=== PATIENT | female | born 1960 | race Caucasian/White ===

== ENCOUNTER 2017-01-13 20:30 | Observation (INO) | payer BC ==
[2017-01-13 21:16] LABS: Basophils # (A) 0.1 k/uL (0-0.2); Basophils % (A) 1 %; CH 31.4; CHCM 34.9; Eosinophils # (A) 0.3 k/uL (0-0.7); Eosinophils % (A) 5 %; HCT 40.9 % (34.0-46.0); HDW 2.73; HGB 13.9 gm/dL (11.4-16.0); Luc # (Auto) 0.21; Luc % (Auto) 3; Lymphocytes # (A) 1.9 k/uL (1.0-4.8); Lymphocytes % (A) 27 %; MCH 30.6 pg (25.0-35.0); MCHC 33.9 g/dL (31.0-37.0); MCV 90.3 fL (80.0-100.0); Mean Platelet Volume 7.3; Monocytes # (A) 0.5 k/uL (0-1.0); Monocytes % (A) 7 %; Neutrophils # (A) 4.2 k/uL (1.3-7.7); Neutrophils % (A) 58 %; RBC 4.53 m/uL (3.80-5.40); RDW 13.1 % (11.5-15.5); WBC 7.2 k/uL (3.8-10.6); WBC (Perox) 7.22
[2017-01-13 21:24] LABS: Prothrombin Time 10.1 sec (9.0-12.0)
[2017-01-13 21:29] LABS: ALT 39 U/L (9-52); AST 29 U/L (14-36); Alkaline Phosphatase 95 U/L (38-126); Anion Gap 10 mmol/L; Blood Urea Nitrogen 21 mg/dL (7-17); Calcium 9.4 mg/dL (8.4-10.2); Carbon Dioxide 27 mmol/L (22-30); Chloride 102 mmol/L (98-107); Glucose 98 mg/dL (74-99); Magnesium 1.8 mg/dL (1.6-2.3); Non-African American GFR(MDRD) >60 (>60 ml/min/1.73 sqM); Potassium 4.5 mmol/L (3.5-5.1); Sodium 139 mmol/L (137-145); Total Bilirubin 0.5 mg/dL (0.2-1.3); Total Protein 7.8 g/dL (6.3-8.2)
[2017-01-13 21:40] LABS: Creatine Kinase 348 U/L (30-135)
--- NOTE | 2017-01-13 21:42 | XR ---
EXAMINATION TYPE: XR chest 2V DATE OF EXAM: 01/13/2017 9:24 PM COMPARISON: NONE HISTORY: Chest pain TECHNIQUE: Frontal and lateral views of the chest are obtained. FINDINGS: There is coarse interstitial density throughout the lungs. There is suboptimal inspiration . Heart is probably enlarged. There are chest leads. There are no hilar masses. IMPRESSION: There is pulmonary interstitial edema that could relate to acute heart failure.
[2017-01-13 21:54] LABS: Troponin I <0.012 ng/mL (0.000-0.034)
--- NOTE | 2017-01-13 22:01 | ED ---
Chest Pain HPI - General Chief Complaint: Chest Pain Stated Complaint: Chest Pain Time Seen by Provider: 01/13/17 21:00 Source: patient Mode of arrival: wheelchair Limitations: no limitations - History of Present Illness Initial Comments: Been feeling unwell for the last 3 days, woke up to 30 in the morning last night complaining with the left shoulder pain him a pain also traveled to his upper back she was quite diaphoretic she felt there was indigestion and complaining about the pain in the epigastric area pain is all the half-normal later and then now has upper back pain and known today she does have a history of hypertension denies any tobacco denies any alcohol he denies the pain gets worse with deep breaths family history mom mom has no he had a history of heart disease dad had no history of heart disease both parents had cancer, degree of system is unremarkable otherwise - Related Data Home Medications Medication Instructions Recorded Confirmed Ranitidine HCl [Zantac] 150 mg PO TID-W/MEALS 08/20/14 01/13/17 cloNIDine HCL [Catapres] 0.1 mg PO DAILY 08/20/14 01/13/17 Citalopram Hydrobromide [CeleXA] 40 mg PO DAILY 01/13/17 01/13/17 Diclofenac Potassium [Cataflam] 50 mg PO DAILY 01/13/17 01/13/17 Glucosamine HCl/Chondr Deluna A Na 2 tab PO QAM 01/13/17 01/13/17 [Osteo Bi-Flex Caplet] Lactobacillus Acidophilus 3 tab PO HS 01/13/17 01/13/17 [Acidophilus] Lactobacillus Acidophilus 4 tab PO QAM 01/13/17 01/13/17 [Acidophilus] Allergies Allergy/AdvReac Type Severity Reaction Status Date / Time metronidazole [From Flagyl] Allergy Rash/Hives Verified 01/13/17 21:42 nitrofurantoin Allergy Unknown Verified 01/13/17 21:42 macrocrystalline [From Macrodantin] gluten AdvReac Severe Abdominal Verified 01/13/17 21:48 Pain Review of Systems ROS Statement: Those systems with pertinent positive or pertinent negative responses have been documented in the HPI. ROS Other: All systems not noted in ROS Statement are negative. EKG Findings - EKG Comments: EKG Findings:: EKG is normal sinus rhythm ventricular rate is 65 AK interval is 158 QRS duration is 86 QT/QTc is 412/428 review of this EKG reveals some flattening of the T-wave in lead 3 other leads are within normal range Past Medical History Past Medical History: GERD/Reflux, Hypertension Additional Past Medical History / Comment(s): gout History of Any Multi-Drug Resistant Organisms: None Reported Past Surgical History: Section, Tonsillectomy Additional Past Surgical History / Comment(s): right hip, bilateral ankles, rhinoplasty Past Psychological History: Anxiety Smoking Status: Never smoker Past Alcohol Use History: Occasional Past Drug Use History: None Reported General Exam - General Exam Comments Initial Comments: General: The patient is awake and alert, in no distress, and does not appear acutely ill. GCS is 15 Skin: Skin is warm and dry and no rashes or lesions are noted. Eye: Pupils are equal, round and reactive to light, extra-ocular movements are intact; there is normal conjunctiva bilaterally. Ears, nose, mouth and throat: There are moist mucous membranes and no oral lesions. Neck: The neck is supple, there is no tenderness Cardiovascular: There is a regular rate and rhythm. No murmur, rub or gallop is appreciated. Respiratory: To auscultation bilateral, noticed crackles at the bases Gastrointestinal: Soft, non-distended, Epigastric area is tender to palpation Back: There is no tenderness to palpation in the midline. There is no obvious deformity. Musculoskeletal: Normal ROM, no tenderness, There is no pedal edema. There is no calf tenderness or swelling. No cords were appreciated. Neurological: CN II-XII intact, Cranial nerves III through XII are intact. There are no obvious motor or sensory deficits. Coordination appears grossly intact. Speech is normal. Psychiatric: Cooperative, appropriate mood & affect, normal judgment. Limitations: no limitations Course Vital Signs 01/13/17 01/13/17 20:33 23:52 Temperature 98.5 F Pulse Rate 74 86 Respiratory 18 16 Rate Blood Pressure 162/80 152/70 O2 Sat by Pulse 96 98 Oximetry Disposition Clinical Impression: Congestive heart failure Disposition: ADMITTED IP TO THIS HOSP Condition: Good
[2017-01-13 22:29] LABS: Creatine Kinase MB 4.2 ng/mL (0.0-2.4)
[2017-01-13] MEDS ORDERED: FUROSEMIDE 10 MG/ML 4 ML VIAL IV STA (23:02)
[2017-01-14 01:53] VITALS: BMI 45.0
[2017-01-14] MEDS: FAMOTIDINE 20 MG TAB PO SCH ×3 (06:42→17:05)
[2017-01-14] MEDS: ENOXAPARIN 40 MG/0.4 ML SYRINGE SQ SCH (08:31)
[2017-01-14] MEDS: LACTOBACILLUS ACIDOPH & BULGAR 1 EACH PACKET PO SCH ×2 (08:31→12:09)
[2017-01-14] MEDS: ETODOLAC 200 MG CAPSULE PO SCH (08:32)
[2017-01-14] MEDS: CITALOPRAM HYDROBROMIDE 20 MG TAB PO SCH (08:32)
--- NOTE | 2017-01-14 08:36 | XR ---
EXAMINATION TYPE: XR chest 2V DATE OF EXAM: 01/14/2017 6:23 AM COMPARISON: 01/13/2017 TECHNIQUE: PA and lateral views submitted. HISTORY: Chest pain FINDINGS: The lungs are clear and there is no pneumothorax, pleural effusion, or focal pneumonia. Interstitiu m slightly improved. Biapical pleural thickening noted. IMPRESSION: 1. Improving interstitial process.
[2017-01-14] MEDS ORDERED: cloNIDine HCL 0.1 MG TAB PO SCH (09:00)
[2017-01-14] MEDS ORDERED: CHONDR SU A NA PO SCH (09:00)
[2017-01-14] MEDS ORDERED: GLUCOSAMINE HCL PO SCH (09:00)
[2017-01-14] MEDS ORDERED: FLUTICASONE 50MCG/SPRAY NASAL 16GM EA NOSTRIL PRN (09:21)
[2017-01-14] MEDS ORDERED: LEVOFLOXACIN 500 MG TAB PO SCH ×3 (09:30→10:00)
[2017-01-14] MEDS ORDERED: FUROSEMIDE 10 MG/ML 4 ML VIAL IV SCH (10:00)
--- NOTE | 2017-01-14 10:18 | P.CRDCN ---
History of Present Illness Consult date: 01/14/17 Requesting physician: Elena Saab Consult reason: chest pain Chief complaint: Shoulder and chest discomfort History of present illness: This is a 56-year-old female with history of hypertension who states that she woke up from sleep around 3 AM with discomfort in her left shoulder radiating across her upper back and scapula area, she also states that she had a feeling of indigestion and heartburn and became quite diaphoretic. Patient states she had associated difficulty in taking a deep breath. She took 4 aspirins and came to the emergency room for further evaluation. EKG on arrival showed normal sinus rhythm with no acute changes.'s morning's EKG shows normal sinus rhythm with no acute changes. Initial chest x-ray revealed pulmonary interstitial edema. Chest x-ray this morning shows improving interstitial process. The pressure on arrival to the emergency room 162/80 with a heart rate in the 70s, 96% on room air. Laboratory data was reviewed, WBC 7.2, hemoglobin 13.9, platelet count 206. Potassium 4.5, BUN 21, creatinine 0.8. CK 348, MB 4.2, troponins negative 2. BNP level 41. Patient was given a one- time dose of IV Lasix in the emergency room and initiated on 40 mg of Lasix IV twice a day. Her weight is down 1 kg today. At the time of my examination this morning, patient states she feels tired but no other complaints. Past Medical History Past Medical History: Eye Disorder, GERD/Reflux, Hypertension, Osteoarthritis ( OA), Sleep Apnea/CPAP/BIPAP Additional Past Medical History / Comment(s): torn retina in left eye, History of Any Multi-Drug Resistant Organisms: None Reported Past Surgical History: Section, Orthopedic Surgery, Tonsillectomy Additional Past Surgical History / Comment(s): right hip, bilateral ankles, rhinoplasty, right knee, Past Anesthesia/Blood Transfusion Reactions: Previous Problems w/ Anesthesia Additional Past Anesthesia/Blood Transfusion Reaction / Comment(s): reaction to anesthesia after laparoscopy Past Psychological History: Anxiety, Depression Smoking Status: Never smoker Past Alcohol Use History: Occasional Past Drug Use History: None Reported - Past Family History Father Family Medical History: Cancer Additional Family Medical History / Comment(s): colon cancer, of lung cancer at age 71 Mother Additional Family Medical History / Comment(s): just 09/04/15 of cirrohosis of the liver, polio Medications and Allergies Home Medications Medication Instructions Recorded Confirmed Type Ranitidine HCl [Zantac] 150 mg PO TID-W/MEALS 08/20/14 01/13/17 History cloNIDine HCL [Catapres] 0.1 mg PO DAILY 08/20/14 01/13/17 History Citalopram Hydrobromide [CeleXA] 40 mg PO DAILY 01/13/17 01/13/17 History Diclofenac Potassium [Cataflam] 50 mg PO DAILY 01/13/17 01/13/17 History Glucosamine HCl/Chondr Deluna A Na 2 tab PO QAM 01/13/17 01/13/17 History [Osteo Bi-Flex Caplet] Lactobacillus Acidophilus 3 tab PO HS 01/13/17 01/13/17 History [Acidophilus] Lactobacillus Acidophilus 4 tab PO QAM 01/13/17 01/13/17 History [Acidophilus] Allergies Allergy/AdvReac Type Severity Reaction Status Date / Time metronidazole [From Flagyl] Allergy Rash/Hives Verified 01/13/17 21:42 nitrofurantoin Allergy Unknown Verified 01/13/17 21:42 macrocrystalline [From Macrodantin] gluten AdvReac Severe Abdominal Verified 01/13/17 21:48 Pain Physical Exam Vitals: Vital Signs Temp Pulse Pulse Resp BP BP Pulse Ox 01/14/17 08:39 98.4 F 72 18 131/67 95 01/14/17 04:00 98.2 F 70 18 138/87 99 01/14/17 00:55 75 16 135/73 98 01/14/17 00:52 70 16 171/92 94 L Intake and Output 01/13/17 01/14/17 01/14/17 22:59 06:59 14:59 Output Total 400 500 Balance -400 -500 Output: Urine 400 500 Other: Voiding Method Toilet Toilet # Voids 1 1 Weight 130.4 kg PHYSICAL EXAMINATION: HEENT: Head is atraumatic, normocephalic. Pupils equal, round. Neck is supple. There is no elevated jugular venous pressure. HEART EXAMINATION: Heart S1, S2 normal. No murmur or gallop heard. CHEST EXAMINATION: Lungs are clear to auscultation and precussion. No chest wall tenderness is noted on palpation or with deep breathing. ABDOMEN: Soft, nontender. Bowel sounds are heard. No organomegaly noted. EXTREMITIES: 2+ peripheral pulses with no evidence of peripheral edema and no calf tenderness noted. NEUROLOGIC patient is awake, alert and oriented -3. . Results 01/13/17 21:00 01/13/17 21:00 Cardiac Enzymes 01/14/17 Range/Units 06:31 Troponin I <0.012 (0.000-0.034) ng/mL Current Medications Generic Name Dose Route Start Last Admin Trade Name Freq PRN Reason Stop Dose Admin Acetaminophen 650 mg 01/14/17 02:19 Tylenol Tab PO Q6HR PRN Fever and/ or Pain Citalopram Hydrobromide 40 mg 01/14/17 09:00 01/14/17 08:32 Celexa PO 40 mg DAILY RABIA Administration Clonidine 0.1 mg 01/14/17 09:00 01/14/17 08:32 Catapres PO 0.1 mg DAILY RABIA Administration Enoxaparin Sodium 40 mg 01/14/17 09:00 01/14/17 08:31 Lovenox SQ 40 mg DAILY RABIA Administration Etodolac 200 mg 01/14/17 09:00 01/14/17 08:32 Lodine PO 200 mg DAILY RABIA Administration Famotidine 20 mg 01/14/17 07:30 01/14/17 06:42 Pepcid PO 20 mg TID-W/MEALS RABIA Administration Fluticasone Propionate 2 spray 01/14/17 09:21 Flonase Nasal [place] EA NOSTRIL DAILY PRN Allergy Symptoms Furosemide 40 mg 01/14/17 10:00 01/14/17 08:31 Lasix IV 40 mg Q12H RABIA Administration Lactobacillus Acidoph/Bulgaricus 1 each 01/14/17 21:00 Lactinex PO HS RABIA Lactobacillus Acidoph/Bulgaricus 1 each 01/14/17 09:00 01/14/17 08:31 Lactinex PO 1 each QAM RABIA Administration Lactobacillus Acidoph/Bulgaricus 1 each 01/14/17 12:00 Lactinex PO DAILY@1200 RABIA Levofloxacin 500 mg 01/14/17 10:00 Levaquin PO Q24HR RABIA Intake and Output 01/13/17 01/14/17 01/14/17 22:59 06:59 14:59 Output Total 400 500 Balance -400 -500 Output: Urine 400 500 Other: Voiding Method Toilet Toilet # Voids 1 1 Weight 130.4 kg EKG Interpretations (text) EKG shows normal sinus rhythm with no acute changes Assessment and Plan Plan: Assessment and plan #1 symptoms of left shoulder, scapula, and midsternal chest discomfort, atypical for acute coronary syndrome. Initial EKG shows normal sinus rhythm with no acute changes. Morning EKG shows normal sinus rhythm with no acute changes. Troponins 2 have been negative. #2 suggestion of congestive heart failure on chest x-ray, BNP level normal. No clinical suggestion of congestive heart failure. IV Lasix given. #3 history of hypertension #4 cardiac risk factors negative for diabetes, hyperlipidemia, smoking, and family history of premature coronary artery disease. Plan We will obtain an echocardiogram with Doppler study. Discontinue IV Lasix. Patient has been recommended to undergo a stress test for further evaluation. Further will be based on these findings and patient's clinical course. DNP note has been reviewed, I agree with a documented findings and plan of care. Patient was seen and examined.
--- NOTE | 2017-01-14 12:07 | P.PN ---
Progress Note - Text This is an addendum to the dictated cardiology consultation. The patient presented with shoulder discomfort and a brief episode of dyspnea that occurred while she was sleeping. She is average in her exercise tolerance and has no chest discomfort and no change in her breathing. She has occasional peripheral edema but no PND nor orthopnea. She has chronic right shoulder discomfort related to a prior injury but the left shoulder discomfort is new. Her examination shows clear lungs, no peripheral edema and no significant heart murmur. Her troponin are normal and her NT proBNP is normal. Her chest x-ray raised the question of congestion yet I believe that there is no significant abnormalities. Her EKG shows no acute changes. I do not believe that we are dealing with congestive heart failure. Her diuretics are stopped, her level of activity will be increased and we will proceed with a stress echocardiogram to further evaluate her symptoms and guide her treatment area thank you for this consult we will follow with you.
[2017-01-14] MEDS: ACETAMINOPHEN TAB 325 MG TAB PO PRN ×3 (12:09→22:39)
[2017-01-14] MEDS: CALCIUM POLYCARBOPHIL 625 MG TAB PO SCH (12:15)
--- NOTE | 2017-01-14 12:15 | ECHOF ---
Referral Reason:Heart Failure MEASUREMENTS -------- HEIGHT: 170.2 cm WEIGHT: 130.2 kg BP: 131/67 RVIDd: 3.5 cm (< 3.3) IVSd: 1.1 cm (0.6 - 1.1) LVIDd: 5.0 cm (3.9 - 5.3) LVPWd: 1.2 cm (0.6 - 1.1) IVSs: 1.9 cm LVIDs: 3.5 cm LVPWs: 1.6 cm LA Diam: 3.6 cm (2.7 - 3.8) LAESV Index (A-L): 19.05 ml/m Ao Diam: 3.0 cm (2.0 - 3.7) AV Cusp: 1.6 cm (1.5 - 2.6) LA Diam: 3.4 cm (2.7 - 3.8) MV EXCURSION: 11.800 mm (> 18.000) MV EF SLOPE: 65 mm/s (70 - 150) EPSS: 0.9 cm MV E Garth: 0.72 m/s MV DecT: 308 ms MV A Garth: 0.81 m/s MV E/A Ratio: 0.89 RAP: 5.00 mmHg RVSP: 24.33 mmHg FINDINGS -------- Sinus rhythm. This was a technically adequate study. There is borderline concentric left ventricular hypertrophy. Overall left ventricular systolic function is normal with, an EF between 55 - 60 %. The right ventricle is mildly enlarged. Normal LA size by volume 22+/-6 ml/m2. The right atrium is normal in size. Aortic valve is trileaflet and is mildly thickened. Mild mitral annular calcification present. Mild tricuspid regurgitation present. Right ventricular systolic pressure is normal at < 35 mmHg. Pulmonic valve appears structurally normal. The aortic root size is normal. IVC Not well visulized. Echo free space may represent effusion or a pericardial fat pad. CONCLUSIONS -------- 1. Sinus rhythm. 2. Mild tricuspid regurgitation present. 3. Right ventricular systolic pressure is normal at < 35 mmHg. 4. Pulmonic valve appears structurally normal. 5. The aortic root size is normal. 6. IVC Not well visulized. 7. Echo free space may represent effusion or a pericardial fat pad. 8. This was a technically adequate study. 9. There is borderline concentric left ventricular hypertrophy. 10. Overall left ventricular systolic function is normal with, an EF between 55 - 60 %. 11. The right ventricle is mildly enlarged. 12. Normal LA size by volume 22+/-6 ml/m2. 13. The right atrium is normal in size. 14. Aortic valve is trileaflet and is mildly thickened. 15. Mild mitral annular calcification present. [employer]ESS TENDER: Easton Hathaway RDCS
[2017-01-14] MEDS ORDERED: LACTOBACILLUS ACIDOPH & BULGAR 1 EACH PACKET PO SCH (21:00)
[2017-01-15 01:21] VITALS: RESP 18
--- NOTE | 2017-01-15 07:55 | HP ---
DATE OF ADMISSION: The patient is 56-year-old with known history of hypertension, came in with complaints of chest discomfort in the left shoulder, radiating to the upper scapula, lasted for a few hours, constant, about ( ) in severity. Patient's pain resolved with 4 aspirins at home. Patient also complains of some pain when she takes a deep breath, because of which I am obtaining a D-dimer on her. Patient's chest x-ray showed some suspicious changes consistent with pulmonary edema. Patient is complaining of sinusitis with nasal discharge, greenish sputum production. Patient's chest pain is not associated with shortness of breath. Denied any lightheadedness. Denied any diaphoresis. Patient's chest pain is not associated with food. Patient's chest pain actually radiates from the neck area to the left shoulder. Actually patient has mainly shoulder pain rather than chest pain sharp in nature, constant. Patient had EKG and troponins, which are negative. Three sets of troponins are negative. Patient was evaluated by Cardiology. Patient had an echocardiogram which showed a normal ejection fraction. The patient's ( ) is 46. Patient was given Lasix, which was subsequently discontinued by cardiology, which I believe is appropriate. REVIEW OF SYSTEMS: CONSTITUTIONAL: No fever, no malaise, no fatigue. HEENT: No recent visual problems or hearing problems. Denied any sore throat. CARDIOVASCULAR: As described in HPI. PULMONARY: No shortness of breath, no cough, no hemoptysis. GASTROINTESTINAL: No diarrhea, no nausea, no vomiting, no abdominal pain. Normoactive bowel sounds. NEUROLOGICAL: No headaches, no weakness, no numbness. HEMATOLOGICAL: Denies any bleeding or petechiae. GENITOURINARY: Denies any burning micturition, frequency, or urgency. MUSCULOSKELETAL/RHEUMATOLOGICAL: As described in HPI. The patient completely is shoulder pain free. The patient's pain is in the left shoulder. ENDOCRINE: Denies any polyuria or polydipsia. The rest of the 14 point review of systems is negative. PAST MEDICAL HISTORY: Significant for gastroesophageal reflux disease, osteoarthritis, hypertension, sleep apnea. Patient had orthopedic surgery and tonsillectomy in the past. Patient has anxiety and depression. Denied any smoking , alcohol abuse or any drug abuse. FAMILY HISTORY: Significant for colon cancer in father who at the age of 71. Mother of cirrhosis of the liver. Home medications include: 1. Ranitidine. 2. Clonidine. Patient apparently is taking this clonidine for blood pressure although is only once daily clonidine, but it appears like it is something ( ). 3. Citalopram. 4. Diclofenac. 5. Lactobacillus. ALLERGIES: Allergic to METRONIDAZOLE, NITROFURANTOIN, GLUTEN. PHYSICAL EXAMINATION: Temperature 98.4, pulse of 72, respiratory rate 18, blood pressure 131/67, saturating at 95% on room air. GENERAL: The patient is alert and oriented x3, not in any acute distress. Well developed, well nourished. HEENT: Pupils are round and equally reacting to light. EOMI. No scleral icterus. No conjunctival pallor. Normocephalic, atraumatic. No pharyngeal erythema. No thyromegaly. CARDIOVASCULAR: S1 and S2 present. No murmurs, rubs, or gallops. PULMONARY: Chest is clear to auscultation, no wheezing or crackles. ABDOMEN: Soft, nontender, nondistended, normoactive bowel sounds. No palpable organomegaly. MUSCULOSKELETAL: No joint swelling or deformity. EXTREMITIES: No cyanosis, clubbing, or pedal edema. NEUROLOGICAL: Gross neurological examination did not reveal any focal deficits. SKIN: No rashes. LABORATORY DATA: CBC and CMP essentially within normal limits. Chest x-ray did not show any pneumonic process. ASSESSMENT AND PLAN: 1. Chest pain, appears to be mostly musculoskeletal radiating from the neck area to the ( ). Patient will benefit from outpatient physical therapy and antiinflammatory medications; although will rule out acute coronary syndrome and unstable angina. Patient is going for stress test. 2. Questionable congestive heart failure, which is ruled out. Patient's chest x-ray findings are ( ) from her ( ). 3. Hypertension, although patient's blood pressure is within normal limits and patient is with a very minimal dose of clonidine, which probably can be discontinued. 4. Sinusitis for which I will ( ). Levofloxacin will be discontinued. 5. Hypertension. 6. Hyperlipidemia for which patient will be continued on her home medications. Patient will be discharged tomorrow if stress test is negative. Patient mostly has musculoskeletal.
[2017-01-15] MEDS ORDERED: AZITHROMYCIN 500 MG TAB PO SCH (09:00)
[2017-01-15] MEDS: ENOXAPARIN 40 MG/0.4 ML SYRINGE SQ SCH (09:16)
[2017-01-15] MEDS: CITALOPRAM HYDROBROMIDE 20 MG TAB PO SCH (09:16)
[2017-01-15] MEDS: FAMOTIDINE 20 MG TAB PO SCH ×2 (09:16→12:06)
[2017-01-15] MEDS: LACTOBACILLUS ACIDOPH & BULGAR 1 EACH PACKET PO SCH ×2 (09:17→12:06)
[2017-01-15] MEDS: ETODOLAC 200 MG CAPSULE PO SCH (09:17)
[2017-01-15] MEDS: CALCIUM POLYCARBOPHIL 625 MG TAB PO SCH (12:06)
[2017-01-15 13:35] VITALS: BP 124/89; PULSE 89; TEMP 98.1
--- NOTE | 2017-01-15 13:59 | ECHOS ---
DATE OF SERVICE: 01/15/2017 AGE: 56Y SEX: F HT: 67" WT: 287 lbs. Protocol Joby: X Others: Stress Echo Stage: 2 Dur. of Exercise: 6:45 *Heart Rate Blood Pressure *Rest: 92 Rest: 132/68 * *Max. Achieved: 138 Maximum BP: 213/709 85% PMHR: 138 100% PMHR: 162 *METS: 8.1 INDICATIONS: Chest pain. MEDICATIONS: Catapres, Celexa, Cataflam, Zantac, Probiotic, glucosamine. Patient exercised for a total period of 6 minutes and 45 seconds. Peak heart rate of 138 was achieved. Maximum blood pressure of 202/95 mmHg was noted. Resting EKG shows normal sinus rhythm with normal VT interval and QRS duration and normal ST-T waves. No ST segment depression suggestive of ischemia is noted. The baseline echocardiographic images reveal a normal left ventricular chamber size with normal left ventricular systolic function. In the immediate postexercise period, normal increase in the wall thickness and contractility is noted. FINAL IMPRESSION: 1. This stress echocardiographic study is negative for stress-induced ischemia. 2. Patient's exercise tolerance is average and did not complain of any chest pain during the test.
--- NOTE | 2017-01-15 15:23 | P.PN ---
Subjective This is a 56-year-old female with history of hypertensionpresented to the hospital with symptoms of chest discomfort, and discomfort in her shoulder area. EKG revealed normal sinus rhythm with no acute changes. Troponins were negative 3. Patient underwent a stress test today that was negative for any reversible ischemia.blood pressure 124/80. Objective - Vital Signs Vital signs: Vital Signs Temp 98.1 F 01/15/17 12:00 Pulse 89 01/15/17 12:00 Resp 18 01/15/17 12:00 BP 124/89 01/15/17 12:00 Pulse Ox 92 L 01/15/17 12:00 Intake & Output 01/14/17 01/15/17 01/15/17 18:59 06:59 18:59 Intake Total 472 500 400 Output Total 1400 800 Balance -928 -300 400 Weight 130.4 kg 129 kg Intake: Oral 472 500 400 Output: Urine 1400 800 Other: Voiding Method Toilet Toilet # Voids 2 0 1 - Labs CBC & Chem 7: 01/13/17 21:00 01/13/17 21:00 Assessment and Plan Plan: Assessment and plan #1 symptoms of left shoulder, scapula, and midsternal chest discomfort, atypical for acute coronary syndrome. Initial EKG shows normal sinus rhythm with no acute changes. Morning EKG shows normal sinus rhythm with no acute changes. Troponins 3 have been negative. #2 no evidence of congestive heart failure. #3 history of hypertension #4 cardiac risk factors negative for diabetes, hyperlipidemia, smoking, and family history of premature coronary artery disease. Plan stress test of today negative for any reversible ischemia. She may be able to be discharged home from our perspective we'll make her a follow-up appointment in the office post discharge. DNP note has been reviewed, I agree with a documented findings and plan of care. Patient was seen and examined.
--- NOTE | 2017-01-16 09:57 | DS ---
DATE OF ADMISSION: 01/14/2017 DATE OF DISCHARGE: 01/15/2017 Patient is admitted for chest pain, rule out acute coronary artery syndrome. Patient is undergoing stress test today. If that is negative, patient will be discharged today and patient's chest pain is musculoskeletal in nature. Patient has a d-dimer which is negative. Patient has shortness of breath when she came in, probably because of stuffed nose for which patient does have sinusitis for which patient will be discharged on azithromycin. No evidence of pneumonia. Patient is otherwise clinically doing well. Patient was seen and examined on the day of discharge. Vitals are stable. PHYSICAL EXAMINATION: GENERAL: The patient is alert and oriented x3, not in any acute distress. Well developed, well nourished. HEENT: Pupils are round and equally reacting to light. EOMI. No scleral icterus. No conjunctival pallor. Normocephalic, atraumatic. No pharyngeal erythema. No thyromegaly. CARDIOVASCULAR: S1 and S2 present. No murmurs, rubs, or gallops. PULMONARY: Chest is clear to auscultation, no wheezing or crackles. ABDOMEN: Soft, nontender, nondistended, normoactive bowel sounds. No palpable organomegaly. MUSCULOSKELETAL: No joint swelling or deformity. EXTREMITIES: No cyanosis, clubbing, or pedal edema. NEUROLOGICAL: Gross neurological examination did not reveal any focal deficits. SKIN: No rashes. ASSESSMENT AND PLAN: 1. Chest pain because of above-mentioned reasons. 2. Congestive heart failure ruled out. Patient's chest x-ray findings are because of the soft tissue indifference. I do not believe patient has heart failure or pulmonary edema at this point of time. 3. Sinusitis. 4. Hypertension. 5. Hyperlipidemia. Please refer to my depart summary for further details of discharge medications. DISCHARGE DIET: Cardiac. Activity as tolerated. Follow with Dr. Julieth Collazo in 3 to 7 days. Spent greater than 35 minutes in total discharge process.
== END 2017-01-15 15:01 | disposition home or self-care (01) ==
LOC: EC 20:30 → 6SEL 01-14 00:33
PROVIDERS: ADMIT Hospitalist; ATTEND Hospitalist
DX: R07.89 Other chest pain (principal); J32.9 Chronic sinusitis, unspecified; K21.9 Gastro-esophageal reflux disease without esophagitis; F41.9 Anxiety disorder, unspecified; M25.512 Pain in left shoulder; G47.30 Sleep apnea, unspecified; F32.9 Major depressive disorder, single episode, unspecified; E78.5 Hyperlipidemia, unspecified; Z80.1 Family history of malignant neoplasm of trachea, bronchus and lung; Z88.3 Allergy status to other anti-infective agents; Z80.0 Family history of malignant neoplasm of digestive organs; Z79.899 Other long term (current) drug therapy; I10 Essential (primary) hypertension
CPT/HCPCS: 96374 ×2; 99285 ×2; 36415; 93005; 93350; 93017; 93306; 85379; 83880; 80053; 82550; 82553; 83735; 84484 ×2; 85025; 85610; 85730; 87502; 71020 ×2; G0378 ×2; J1940 ×2; J1650 ×2; Q9957

== ENCOUNTER → 2018-05-04 | Outpatient (CLI) | payer BC ==
--- NOTE | 2018-05-05 13:43 | MM ---
Reason for exam: screening (asymptomatic). Last mammogram was performed 2 years and 9 months ago. History: Patient is postmenopausal. Physical Findings: A clinical breast exam by your physician is recommended on an annual basis and results should be correlated with mammographic findings. MG 3D Screening Mammo W/Cad Bilateral CC and MLO view(s) were taken. Prior study comparison: August 10, 2015, bilateral MG screening mammo w CAD. March 16, 2013, bilateral digital screening mammo w/CAD. The breast tissue is heterogeneously dense. This may lower the sensitivity of mammography. Stable benign calcifications. There is no discrete abnormality. No significant changes when compared with prior studies. ASSESSMENT: Benign, BI-RAD 2 RECOMMENDATION: Routine screening mammogram of both breasts in 1 year.
== END | disposition home or self-care (01) ==
LOC: RADMAMWWP 08:53
PROVIDERS: ATTEND Family Medicine
DX: Z12.31 Encounter for screening mammogram for malignant neoplasm of breast (principal)
CPT/HCPCS: 77063; 77067

== ENCOUNTER → 2019-06-28 | Outpatient (CLI) | payer BC ==
--- NOTE | 2019-06-28 19:34 | BD ---
EXAMINATION TYPE: Axial Bone Density DATE OF EXAM: 06/28/2019 COMPARISON: 08/10/2015 CLINICAL HISTORY: 59-year-old female screening for osteoporosis Height: 66 IN Weight: 283 LBS RISK FACTORS HISTORY OF: History of Wrist Fracture: YES RT WRIST When: AGE 6 Surgery to Hip(right): YES When: 2013 Family History of Osteoporosis: YES MOTHER Active: MODERATE Diet low in dairy products/other sources of calcium: YES Postmenopausal woman: AGE 48 MEDICATIONS: Additional Medications: RITALIN, VYVANSE, WELLBUTRIN XL, ZOLOFT, CYMBALTA, CATAFLAM, EXAM MEASUREMENTS: Bone mineral densitometry was performed using the GELI System. Bone mineral density as measured about the Lumbar spine is: ----- L1-L4(G/cm2): 1.194 T Score Values are as follows: ----- L2: -0.1 ----- L3: 0.8 ----- L4: -0.2 ----- L1-L4: 0.1 Bone mineral density has: Increased 4.1% since study of: 08/10/2015 Bone mineral density about the L hip (g/cm2): 0.950 T Score values are as follows: -----L Neck: -0.6 -----L Total: 0.9 Bone mineral density has: Decreased -1.9% since study of: 08/10/2015 IMPRESSION: Normal (Values between +1 and -1 indicate normal bone mass). Consider repeating this study in 5 year s or sooner if there is some new clinical indication. NOTE: T-SCORE=SD OF THE YOUNG ADULT MEAN.
--- NOTE | 2019-06-30 08:53 | MM ---
Reason for exam: screening (asymptomatic). Last mammogram was performed 1 year and 2 months ago. History: Patient is postmenopausal. Physical Findings: A clinical breast exam by your physician is recommended on an annual basis and results should be correlated with mammographic findings. MG 3D Screening Mammo W/Cad Bilateral CC and MLO view(s) were taken. Prior study comparison: May 04, 2018, bilateral MG 3d screening mammo w/cad. August 10, 2015, bilateral MG screening mammo w CAD. There are scattered fibroglandular densities. There is chronic nodularity bilaterally. No significant changes when compared with prior studies. ASSESSMENT: Benign, BI-RAD 2 RECOMMENDATION: Routine screening mammogram of both breasts in 1 year.
== END | disposition home or self-care (01) ==
LOC: RADMAMWWP 15:14
PROVIDERS: ATTEND Family Medicine
DX: Z12.31 Encounter for screening mammogram for malignant neoplasm of breast (principal); Z13.820 Encounter for screening for osteoporosis
CPT/HCPCS: 77063; 77067; 77080

== ENCOUNTER → 2019-08-25 | Outpatient (CLI) | payer BC ==
--- NOTE | 2019-08-25 11:30 | US ---
EXAMINATION TYPE: US abdomen complete DATE OF EXAM: 08/25/2019 COMPARISON: NONE CLINICAL HISTORY: R10.84 generalized abdominal pain. Pain and nausea. EXAM MEASUREMENTS: Liver Length: 17.3 cm Gallbladder Wall: .2 cm CBD: .6 cm Spleen: 12.6 cm Right Kidney: 10.7 x 3.9 x 4.0 cm Left Kidney: 9.4 x 3.8 x 3.6 cm Pancreas: Obscured by bowel gas Liver: There is increased echogenicity of the hepatic parenchyma with diminished visualization of th e portal triads most commonly relating to hepatic steatosis and limiting evaluation for underlying he patic masses. Gallbladder: Multiple stones seen. Evidence for sonographic Xavier's sign: No CBD: wnl Spleen: Within normal limits Right Kidney: wnl Left Kidney: wnl Upper IVC: wnl Abd Aorta: wnl The liver is homogenous. The intrahepatic portion of the IVC and proximal abdominal aorta are within normal limits. Common bile duct is unremarkable. The spleen is unremarkable. Kidneys are symmetric and free of hydronephrosis. No renal lesions are seen. IMPRESSION: 1. Cholelithiasis without sonographic evidence of acute cholecystitis. 2. Sonographic findings most commonly related to hepatic steatosis. Correlate with liver function marco antonio ts. 3. Obscuration of the pancreas by overlying bowel gas.
== END | disposition home or self-care (01) ==
LOC: RADUSWWP 10:31
PROVIDERS: ATTEND Family Medicine
DX: K80.20 Calculus of gallbladder without cholecystitis without obstruction (principal)
CPT/HCPCS: 76700

== ENCOUNTER → 2020-09-18 | Outpatient (CLI) | payer BC ==
--- NOTE | 2020-09-19 14:41 | MM ---
Reason for exam: screening (asymptomatic). Last mammogram was performed 1 year and 3 months ago. History: Patient is postmenopausal. Physical Findings: A clinical breast exam by your physician is recommended on an annual basis and results should be correlated with mammographic findings. MG 3D Screening Mammo W/Cad Bilateral CC and MLO view(s) were taken. Prior study comparison: June 28, 2019, bilateral MG 3d screening mammo w/cad. May 04, 2018, bilateral MG 3d screening mammo w/cad. The breast tissue is heterogeneously dense. This may lower the sensitivity of mammography. There is chronic nodularity bilaterally. Stable distortion on left CC tomosynthesis 57/74. This finding is changed when compared with previous exams. ASSESSMENT: Incomplete: need additional imaging evaluation, BI-RAD 0 RECOMMENDATION: Special view mammogram of the left breast. If lesion persists on supplemental views, image directed ultrasound is recommended. [facility] will attempt to contact patient to return for supplemental views and ultrasound if indicated.
== END | disposition home or self-care (01) ==
LOC: RADMAMWWP 11:48
PROVIDERS: ATTEND Family Medicine
DX: Z12.31 Encounter for screening mammogram for malignant neoplasm of breast (principal)
CPT/HCPCS: 77063; 77067

== ENCOUNTER → 2020-09-22 | Outpatient (CLI) | payer BC ==
--- NOTE | 2020-09-22 10:34 | MM ---
Reason for exam: additional evaluation requested from abnormal screening. Last mammogram was performed less than 1 month ago. History: Patient is postmenopausal. Took hormonal contraceptives for 1 year beginning at age 13. Physical Findings: Nurse did not find any significant physical abnormalities on exam. MG 3D Work Up W/Cad LT Spot compression CC and LM view(s) were taken of the left breast. Prior study comparison: September 18, 2020, bilateral MG 3d screening mammo w/cad. June 28, 2019, bilateral MG 3d screening mammo w/cad. There are scattered fibroglandular densities. There is no discrete abnormality including area of concern. These results were verbally communicated with the patient and result sheet given to the patient on 09/22/20. ASSESSMENT: Probably benign, BI-RAD 3 RECOMMENDATION: Follow-up diagnostic mammogram of the left breast in 6 months.
== END | disposition home or self-care (01) ==
LOC: RADMAMWWP 08:57
PROVIDERS: ATTEND Family Medicine
DX: R92.8 Other abnormal and inconclusive findings on diagnostic imaging of breast (principal)
CPT/HCPCS: 77061; 77065